=== PATIENT | female | born 1955 | race Caucasian/White ===

== ENCOUNTER 2022-03-26 16:04 | Emergency (ER) | payer MEDICARE, OTHER ==
[~2022-03-26] VITALS: Ht 154.9 cm; Wt 70.3 kg
[~2022-03-26 16:04] MED LIST: ASPI81TA31 PO; CYAN100096 PO; ESCI10TA PO; IBUP-1957 PO
[2022-03-26] MEDS ORDERED: IPRATROPIUM BROMIDE 0.5 MG/2.5 ML NEBU NEB ONE (17:30)
[2022-03-26] MEDS ORDERED: ALBUTEROL SULFATE 2.5 MG/3 ML NEBU NEB ONE (17:30)
[2022-03-26] MEDS ORDERED: predniSONE 10 MG TABLET PO ONE (17:30)
[2022-03-26] MEDS ORDERED: IPRATROPIUM BROMIDE 0.5 MG/2.5 ML NEBU ONE (17:31)
[2022-03-26] MEDS ORDERED: ALBUTEROL SULFATE 2.5 MG/3 ML NEBU ONE (17:31)
[2022-03-26] MEDS ORDERED: predniSONE 10 MG TABLET ONE (17:33)
[2022-03-26] MEDS ORDERED: predniSONE 50 MG TABLET ONE (17:33)
[2022-03-26] MEDS ORDERED: AZIT250T PO (18:10)
[2022-03-26] MEDS ORDERED: ALBU18HF2 INH (18:10)
[2022-03-26] MEDS ORDERED: PRED20TA PO (18:10)
--- NOTE | 2022-03-26 18:49 | NUR ---
Patient discharged to home in stable condition with daughter. Written and verbal after care instructions given. Patient/family verbalizes understanding of instructions. Stressed follow up or return to ER for worsening s/s.
== END 2022-03-26 18:50 | disposition home or self-care (01) ==
LOC: ER 16:04
DX: J18.9 Pneumonia, unspecified organism (principal); J45.909 Unspecified asthma, uncomplicated; Z79.82 Long term (current) use of aspirin
CPT/HCPCS: 99284; 71045; 94640; J7512 ×2; A4663; J3590